=== PATIENT | male | born 1950 | race Caucasian/White ===

== ENCOUNTER 2021-07-22 18:29 | Emergency (ER) | payer OTHER ==
[2021-07-22 18:52] LABS: BASOPHIL 0.5 % (0-2); EOSINOPHIL 1.5 % (0-7); HCT 44.6 % (42.0-52.0); HGB 14.7 g/dl (13.2-18.0); LYMPHOCYTE 21.9 % (15-48); MCH 30.5 pg (25.0-31.0); MCV 92.5 fL (78.0-100.0); MONOCYTE 7.1 % (0-12); MPV 10.4 fL (6.0-9.5); NEUTROPHIL 68.5 % (41-80); NRBC 0; PLT 212 K/uL (150-400); RBC 4.82 M/uL (4.70-6.00); RDW 12.9 % (11.5-14.0)
[2021-07-22 19:13] LABS: BILIRUBIN - TOTAL 0.5 mg/dL (0.2-1.0); BUN/CREAT RATIO (CALC) 16.4 RATIO; CREATININE 1.28 mg/dL (0.67-1.17); GLOBULIN (CALCULATION) 3.2 g/dL; MAGNESIUM 2.1 mg/dL (1.8-2.4); POTASSIUM 4.3 mmol/L (3.5-5.1); TOTAL PROTEIN 7.2 g/dL (6.4-8.2)
[2021-07-22 19:17] LABS: INR 1.11 (0.9-1.2); PROTHROMBIN TIME 13.7 SECONDS (11.8-13.4); PTT 24.2 SECONDS (24.4-34.7)
== END 2021-07-23 01:08 | disposition other institution (70) ==
LOC: FER 18:29
PROVIDERS: Emergency Medicine
DX: S82.141A Displaced bicondylar fracture of right tibia, initial encounter for closed fracture (principal); S01.112A Laceration without foreign body of left eyelid and periocular area, initial encounter; S00.81XA Abrasion of other part of head, initial encounter; M25.511 Pain in right shoulder; M54.2 Cervicalgia; I10 Essential (primary) hypertension; Z23 Encounter for immunization; W55.22XA Struck by cow, initial encounter
CPT/HCPCS: 36415; 70450; 70480; 70486; 71260; 72125; 73020; 73552; 73564; 73590; 80053; 82550; 83690; 83735; 84484; 85025; 85610; 85730; 90471; 90715; 93005; J7030; Q9967